=== PATIENT | female | born 1980 | race Two or more races ===

== ENCOUNTER 2020-06-04 17:03 | Emergency (ER) | payer SELFPAY ==
[~2020-06-04] VITALS: Ht 162.6 cm; Wt 79.0 kg
[2020-06-04 17:53] VITALS: BP 127/52
--- NOTE | 2020-06-04 18:24 | PHYS DOC ---
Past Medical History Past Medical History: No Pertinent History Past Surgical History: No Surgical History Smoking Status: Current Every Day Smoker Alcohol Use: None General Adult EDM: Chief Complaint: HEADACHE HPI: HPI: Patient is a 39 year old female who presents to the ED with headache. Patient states that she has had a consistent headache for the past week. She states that the headache moves around in her head as a 5 or 6 out of 10 in severity but never really goes away. She has some blurred vision and dizziness along with nausea but no vomiting as she has not experienced any fevers, chills, or night sweats. She has used ibuprofen and aspirin but has not given much relief. 1 month ago she received the Lauro [employer] Lauro Covid vaccine in about 3 weeks afterwards her headache started. She has no history of stroke, diabetes, heart disease, or autoimmune. Review of Systems: Review of Systems: Review of systems: Constitutional symptoms- No fever, no chills. Eyes- No Discharge, positive blurred vision Respiratory symptoms- No shortness of breath, No wheezing, No Dyspnea on Exertion Cardiovascular Systems; No chest pain, No Palpitations, No syncope Gastrointestinal symptoms: NO abdominal pain, positive nausea, no vomiting or diarrhea. Genitourinary symptoms: No dysuria. Musculoskeletal symptoms: No back pain No extremity pain. NEUROLOGICAL Symptoms: Positive headache, positive generalized weakness; No focal Weakness Heart Score: C/O Chest Pain: N/A Risk Factors: Risk Factors: DM, Current or recent (<one month) smoker, HTN, HLP, family history of CAD, obesity. Risk Scores: Score 0 - 3: 2.5% MACE over next 6 weeks - Discharge Home Score 4 - 6: 20.3% MACE over next 6 weeks - Admit for Clinical Observation Score 7 - 10: 72.7% MACE over next 6 weeks - Early Invasive Strategies Allergies: Allergies: Allergies Coded Allergies Type Severity Reaction Last Updated Verified No Known Drug Allergies 06/04/20 No Physical Exam: PE: General: alert, no acute distress. Skin: warm, dry and intact. Head:: Normocephalic, atraumatic. Neck: Trachea midline. Eyes: EOMI, Normal conjunctiva, No drainage CARDIOVASCULAR: Regular rate and rhythm RESPIRATORY: No respiratory distress Back: Full range of motion. MUSCULOSKELETAL: Full range of motion of bilateral upper and lower extremities. GASTROINTESTINAL: Abdomen soft without rebound or guarding. NEUROLOGICAL: Alert and noted to person, place and time. No neurological deficits observed, ambulates with steady gait Psychiatric: Cooperative. Normal judgment Current Patient Data: Vital Signs: Vital Signs Date Time Temp Pulse Resp B/P (MAP) Pulse Ox O2 Delivery O2 Flow Rate FiO2 06/04/20 17:53 98.8 82 12 127/52 (77) 99 Room Air 98.8 EKG: EKG: [] Radiology/Procedures: Radiology/Procedures: [] Impression: FINDINGS: There is no evidence of hemorrhage, mass or extra-axial fluid collection. Aquino-white differentiation is maintained with no evidence of edema. There is no mass effect or shift of the intracranial structures. The ventricles, basilar cisterns and cortical sulci are normal in size and configuration for the patients stated age. The cerebellum and brainstem are unremarkable. The calvarium demonstrates no evidence of fracture or focal lesion. There is normal aeration of the visualized paranasal sinuses and mastoid air cells. The visualized portions of the orbits are normal. IMPRESSION: No evidence for acute intracranial process. Course & Med Decision Making: Course & Med Decision Making Pertinent Labs and Imaging studies reviewed. (See chart for details) [] Patient was evaluated for chief complaint. Work-up consisted of Hologic imaging. CT imaging of the head without contrast no acute abnormalities. Patient did receive Lauro & Lauro vaccine--- differential diagnosis headache post vaccination also on the differential diagnosis sinus venous thrombosis. Patient Lauro & Lauro vaccine was approximately 4 weeks ago. Also on DD--meningitis. Patient's HPI and physical exam not consistent with men ingitis. Treatment included Toradol Benadryl Compazine and IV fluids. Posttreatment Dragon Disclaimer: Jeannette Disclaimer: This electronic medical record was generated, in whole or in part, using a voice recognition dictation system. Departure Departure Impression: Primary Impression: Headache Additional Impression: Headache after vaccination Referrals: NO PCP (PCP) Patient Instructions: Headache, FAQs Scripts Butalbit/Acetamin/Caff/Codeine ([id number]) 1 Each Capsule 1 EACH PO Q4HRS, #14 CAP Prov: VÍCTOR PIMENTEL I DO 06/04/20 VÍCTOR PIMENTEL I DO Jun 04, 2020 18:24
[2020-06-04] MEDS ORDERED: IV NORMAL SALINE 1000ML BAG 1,000 ML IV ONE (18:30)
[2020-06-04] MEDS ORDERED: diphenhydrAMINE 50 MG/ML VIAL IVP ONE (18:30)
[2020-06-04] MEDS ORDERED: KETOROLAC 30 MG/ML VIAL. IVP ONE (18:30)
[2020-06-04] MEDS ORDERED: PROCHLORPERAZINE 10 MG/2 ML VIAL. IV ONE (18:30)
--- NOTE | 2020-06-04 19:04 | RAD ---
EXAM: CT Head without IV contrast CLINICAL HISTORY: Headache COMPARISON: None. TECHNIQUE: Routine CT of the head without contrast. PQRS compliance statement - One or more of the following individualized dose reduction techniques wer e utilized for this study: 1. Automated exposure control 2. Adjustment of the mA and/or kV according to patient size 3. Use of iterative reconstruction technique FINDINGS: There is no evidence of hemorrhage, mass or extra-axial fluid collection. Aquino-white differentiation is maintained with no evidence of edema. There is no mass effect or shift of the intracranial structures. The ventricles, basilar cisterns and cortical sulci are normal in size and configuration for the robert ents stated age. The cerebellum and brainstem are unremarkable. The calvarium demonstrates no evidence of fracture or focal lesion. There is normal aeration of the visualized paranasal sinuses and mastoid air cells. The visualized portions of the orbits are normal. IMPRESSION: No evidence for acute intracranial process. Electronically signed by: Merrick Maguire MD (06/04/2020 7:01 PM) [place]
[2020-06-04] MEDS ORDERED: BUTA1CAP58 PO (19:50)
== END 2020-06-04 21:51 | disposition home or self-care (01) ==
LOC: ER 17:03
DX: R51.9 Headache, unspecified (principal); T50.B95A Adverse effect of other viral vaccines, initial encounter; R42 Dizziness and giddiness; H53.8 Other visual disturbances; R11.0 Nausea; F17.200 Nicotine dependence, unspecified, uncomplicated; Y84.8 Other medical procedures as the cause of abnormal reaction of the patient, or of later complication, without mention of misadventure at the time of the procedure; Y92.89 Other specified places as the place of occurrence of the external cause
CPT/HCPCS: 70450; 96361; 96374; 96375; 99284; J0780; J1200; J1885; J7030